=== PATIENT | male | born 1990 | race Caucasian/White ===

== ENCOUNTER 2017-10-02 09:22 | Emergency (ER) | payer OTHER ==
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
[2017-10-02 09:56] VITALS: BP 136/76; PULSE 79; TEMP 98.3; BMI 28.0
[2017-10-02] MEDS ORDERED: SODIUM CHLORIDE 0.9% 1000 ML INFUS.BAG IV ONE (10:08)
[2017-10-02 10:47] LABS: BASO % 0.5 % (0-2.0); HEMATOCRIT 42.7 % (35.4-49); HEMOGLOBIN 14.8 GM/dl (11.7-16.9); LYMPH % 30.6 % (8-40); MCHC 34.6 g/dl (32.0-35.9); MEAN CELL VOLUME 95.3 fl (80-96); MEAN PLT VOLUME 7.1 fl (7.5-11.1); MONO % 8.2 % (3.8-10.2); NEUT % 56.7 % (42.8-82.8); PLATELET COUNT 226 K/MM3 (134-434); RBC 4.48 M/mm3 (4.00-5.60); RDW 11.7 % (11.9-15.9); WHITE BLOOD COUNT 6.4 K/mm3 (4.0-10.8)
[2017-10-02 10:55] LABS: ALK PHOS 42 U/L (32-92); ANION GAP 4 (8-16); BILIRUBIN,TOTAL 1.2 mg/dl (0.2-1.0); BLOOD UREA NITROGEN 15 mg/dl (7-18); CHLORIDE 106 mmol/L (98-107); CO2 27 mmol/L (22-28); CREATININE 1.1 mg/dl (0.6-1.3); GLUCOSE,RANDOM 98 mg/dl (74-106); POTASSIUM 4.1 mmol/L (3.5-5.1); SGOT/AST 39 U/L (10-42); SGPT/ALT 40 U/L (10-40); SODIUM 137 mmol/L (136-145); TOT PROT 6.6 g/dl (6.4-8.3)
[2017-10-02] MEDS ORDERED: KETOROLAC TROMETHAMINE 30 MG/1 ML VIAL IVPUSH ONE (13:11)
[2017-10-02] MEDS ORDERED: KETOROLAC TROMETHAMINE 30 MG/1 ML VIAL ONE (13:17)
[2017-10-02 15:33] LABS: URINE APPEARANCE Clear; URINE BILIRUBIN Negative (NEGATIVE); URINE BLOOD Negative (NEGATIVE); URINE COLOR YELLOW; URINE GLUCOSE (UA) Negative (NEGATIVE); URINE KETONE Negative (NEGATIVE); URINE LEUK ESTERASE Negative (NEGATIVE); URINE NITRITE Negative (NEGATIVE); URINE PROTEIN Negative (NEGATIVE)
== END 2017-10-02 14:00 | disposition home or self-care (01) ==
LOC: FER 09:22
PROC: 3E0333Z Introduction of Anti-inflammatory into Peripheral Vein, Percutaneous Approach (ICD-10-PCS; principal; 2017-10-02)
PROC: 3E0337Z Introduction of Electrolytic and Water Balance Substance into Peripheral Vein, Percutaneous Approach (ICD-10-PCS; 2017-10-02)
DX: S09.90XA Unspecified injury of head, initial encounter (principal); T14.8XXA Other injury of unspecified body region, initial encounter; Y04.2XXA Assault by strike against or bumped into by another person, initial encounter; Y93.89 Activity, other specified; Y92.410 Unspecified street and highway as the place of occurrence of the external cause
CPT/HCPCS: 36415; 70450-TC; 70491-TC; 73030-TC-LT-FY; 73070-TC-LT-FY; 73110-TC-LR-FY; 73110-TC-RT-FY; 73523-TC-FY; 73562-TC-LT-FY; 73562-TC-RT-FY; 80053; 81003; 85025; 99283-25

== ENCOUNTER 2020-08-02 13:55 | Emergency (ER) | payer OTHER ==
[2020-08-02 14:14] VITALS: BP 142/97; PULSE 87; TEMP 98.7; BMI 29.7
[2020-08-02] MEDS ORDERED: KETOROLAC TROMETHAMINE 60 MG/2 ML VIAL ONE ×2 (14:26→14:56)
== END 2020-08-02 15:06 | disposition home or self-care (01) ==
LOC: FER 13:55
PROC: 3E0233Z Introduction of Anti-inflammatory into Muscle, Percutaneous Approach (ICD-10-PCS; principal; 2020-08-02)
DX: M25.531 Pain in right wrist (principal)
CPT/HCPCS: 99283-25

== ENCOUNTER 2025-02-10 10:05 | Emergency (ER) | payer OTHER ==
[2025-02-10 10:42] VITALS: BP 135/89; PULSE 63; RESP 18; TEMP 98.3; BMI 27.3
[2025-02-10] MEDS ORDERED: IBUPROFEN 400 MG TABLET (FP) PO ONE (11:45)
[2025-02-10] MEDS ORDERED: ACETAMINOPHEN 500 MG TABLET (FP) ONE (11:46)
[2025-02-10] MEDS: ACETAMINOPHEN 500 MG TABLET (FP) PO ONE (12:25)
[2025-02-10] MEDS: IBUPROFEN 400 MG TABLET (FP) PO ONE (12:25)
[2025-02-10] MEDS: oxyCODONE HCL 5 MG TABLET PO ONE (12:52)
[2025-02-10] MEDS ORDERED: oxyCODONE HCL 5 MG TABLET ONE (12:52)
[2025-02-10 16:12] LABS: HCV DIAGNOSTIC IN-HOUSE W/RFLX NON-REACTIVE (NONREACTIVE); HIV INTERPRETATION NEGATIVE (NEGATIVE)
== END 2025-02-10 13:20 | disposition home or self-care (01) ==
LOC: FER 10:05
DX: R07.89 Other chest pain (principal); W19.XXXA Unspecified fall, initial encounter
CPT/HCPCS: 36415; 71101-TC-RT-FY; 86803; 87389; 93005; 99285-25